=== PATIENT | female | born 1950 | race African-American/Black ===

== ENCOUNTER 2019-03-05 15:08 | Inpatient (IN) | payer MEDICARE, MEDICAID ==
[~2019-03-05] VITALS: Ht 167.6 cm; Wt 55.8 kg
[2019-03-05] MEDS ORDERED: SODIUM CHLORIDE 0.9% 1,000 ML IV ONE (16:45)
[2019-03-05] MEDS ORDERED: BACITRACIN ZINC OINT UDPKT TOP ONE (17:00)
[2019-03-05] MEDS ORDERED: LIDOCAINE 1%/EPI 1:100,000 10 ML VIAL IJ ONE (17:00)
[2019-03-05] MEDS ORDERED: BACITRACIN 15GM TUBE TOP NR (17:15)
[2019-03-05] MEDS ORDERED: LIDOCAINE HCL/EPINEPHRINE 1%-EPI 1:100,000 20 ML VIAL INFIL NR (17:15)
[2019-03-05 18:00] LABS: BASOPHILS % 0.1 % (0.0-2.0); EOSINOPHILS % 0.4 % (0.0-5.0); HEMATOCRIT. 27.3 % (36.0-48.0); HEMOGLOBIN. 8.7 g/dL (12.0-16.0); LYMPHOCYTES % 7.3 % (20.0-50.0); MEAN CORPUSCULAR HEMOGLOBIN 31.5 pg (28.0-32.0); MEAN CORPUSCULAR VOLUME 98.4 fL (81.0-99.0); MEAN PLATELET VOLUME 7.2 fl (7.4-10.4); MONOCYTES % 4.8 % (2.0-8.0); NEUTROPHILS % 87.4 % (40.0-76.0); PLATELET 225 x1000/uL (130-400); RED BLOOD CELL COUNT 2.77 mill/uL (4.2-5.4); RED CELL DISTRIBUTION WIDTH 20.5 % (11.6-14.6)
[2019-03-05 18:05] LABS: CHLORIDE 106 mEq/L (98-107)
[2019-03-05 18:09] LABS: ETHANOL BLOOD < 10 mg/dL
[2019-03-05] MEDS ORDERED: KETOROLAC 30MG/ML VIAL IV ONE (18:30)
[2019-03-05] MEDS ORDERED: SODIUM CHLORIDE 0.9% 1,000 ML IV SCH (18:43)
[2019-03-05] MEDS ORDERED: ACETAMINOPHEN 325MG TABLET PO PRN (18:45)
[2019-03-05] MEDS ORDERED: ONDANSETRON HCL 4MG/2ML INJ IV PRN (18:45)
[2019-03-05] MEDS ORDERED: MAGNESIUM/ALUMINUM HYDROXIDE/SIMETHICONE 30ML UDC PO PRN (18:45)
[2019-03-05] MEDS ORDERED: CLONIDINE 0.1MG TABLET PO PRN (18:45)
[2019-03-05] MEDS ORDERED: NA PHOS,M-B/NA PHOS,DI-BA ENEMA 118ML PR PRN (18:45)
[2019-03-05] MEDS ORDERED: DOCUSATE SODIUM 100MG CAPSULE PO PRN (18:45)
[2019-03-05] MEDS ORDERED: ZOLPIDEM TARTRATE 5MG TABLET PO PRN (18:45)
[2019-03-05] MEDS ORDERED: IPRATROPIUM/ALBUTEROL 0.5-3(2.5)MG/3ML NEB NEB PRN (18:45)
[2019-03-05] MEDS ORDERED: NITROGLYCERIN 0.4MG TABLET SL SL PRN (18:45)
[2019-03-05] MEDS ORDERED: GUAIFENESIN 200MG/10ML SUGAR FREE UDC PO PRN (18:45)
[2019-03-05] MEDS ORDERED: TRAMADOL 50MG TABLET PO PRN (18:45)
[2019-03-05 19:31] LABS: CLARITY URINE CLOUDY (CLEAR); COLOR URINE YELLOW (YELLOW); KETONES URINE NEGATIVE (NEGATIVE); LEUKOCYTE ESTERASE URINE NEGATIVE (NEGATIVE); NITRITE URINE NEGATIVE (NEGATIVE); OCCULT BLOOD URINE NEGATIVE (NEGATIVE); PROTEIN URINE TRACE (NEGATIVE); SPECIFIC GRAVITY URINE 1.025 (1.005-1.030); UROBILINOGEN URINE 0.2 E.U./dL (0.2-1.0)
[2019-03-05 20:35] LABS: *BARBITURATES SCREEN URINE NEGATIVE (NEGATIVE); *BENZODIAZEPINES SCREEN URINE PRESUMTIVE POSITIVE (NEGATIVE)
[2019-03-05 20:36] LABS: *AMPHETAMINES SCREEN URINE NEGATIVE (NEGATIVE); *COCAINE SCREEN URINE NEGATIVE (NEGATIVE); CANNABINOID URINE SCREEN NEGATIVE (NEGATIVE); METHADONE URINE SCREEN NEGATIVE (NEGATIVE); OPIATES URINE SCREEN PRESUMTIVE POSITIVE (NEGATIVE); PHENCYCLIDINE URINE SCREEN NEGATIVE (NEGATIVE)
[2019-03-05 21:16] LABS: FOLIC ACID (FOLATE) SERUM 18.3 ng/mL (>5.38)
[2019-03-05 23:01] VITALS: BP 101/50
[2019-03-05 23:02] LABS: CREATINE KINASE 436 IU/L (26-192)
[2019-03-05 23:04] LABS: CREATINE KINASE MB FRACTION 6.6 ng/mL (0.5-3.6)
[2019-03-06 01:37] VITALS: BP 101/50
[2019-03-06] MEDS ORDERED: CLOPIDOGREL 75MG TABLET PO SCH (09:00)
[2019-03-06] MEDS ORDERED: ENOXAPARIN 30MG/0.3ML SYR SUBCUT SCH (09:00)
[2019-03-06] MEDS ORDERED: FAMOTIDINE 20MG TABLET PO SCH (09:00)
[2019-03-06] MEDS ORDERED: ASPIRIN 325MG EC TABLET PO SCH (09:00)
== END 2019-03-06 02:31 | disposition left against medical advice (07) | DRG 91 ==
LOC: ER 15:08 → 6WST 18:27 → EDBEDREQTM 18:29 → EDBEDREQ 18:29 → SUPCPDRO 18:42 → ENRESERV 20:38
PROVIDERS: ADMIT Internal Medicine; ATTEND Internal Medicine
PROC: 0HQLXZZ Repair Left Lower Leg Skin, External Approach (ICD-10-PCS; principal; 2019-03-05)
DX: G92 Toxic encephalopathy (principal); N17.0 Acute kidney failure with tubular necrosis; E44.0 Moderate protein-calorie malnutrition; E87.1 Hypo-osmolality and hyponatremia; M62.82 Rhabdomyolysis; Z68.1 Body mass index [BMI] 19.9 or less, adult; D64.9 Anemia, unspecified; I10 Essential (primary) hypertension; W18.39XA Other fall on same level, initial encounter; J44.9 Chronic obstructive pulmonary disease, unspecified; S81.812A Laceration without foreign body, left lower leg, initial encounter; Z79.02 Long term (current) use of antithrombotics/antiplatelets; Z85.3 Personal history of malignant neoplasm of breast; Z86.73 Personal history of transient ischemic attack (TIA), and cerebral infarction without residual deficits; Z88.8 Allergy status to other drugs, medicaments and biological substances; Z90.13 Acquired absence of bilateral breasts and nipples; Y93.89 Activity, other specified; Y92.89 Other specified places as the place of occurrence of the external cause; Y99.8 Other external cause status
CPT/HCPCS: 13121; 36415; 71045; 80061; 80305; 80320; 81003; 82550; 82553; 82607; 82746; 82962; 83036; 83605; 84484; 93005; 93970; 96374; 99285; J1885; J3490; J7030; G0480